=== PATIENT | female | born 1980 | race Caucasian/White ===

== ENCOUNTER 2020-08-15 07:29 | Outpatient (REF) | payer OTHER, SELFPAY | END 2020-08-15 07:30 | disposition home or self-care (01) | LOC: HO.LAB 07:29 | PROVIDERS: Visit Provider Internal Medicine | DX: Z20.828 Contact with and (suspected) exposure to other viral communicable diseases (principal) | CPT/HCPCS: C9803; U0003 ==

== ENCOUNTER 2022-05-19 09:55 | Outpatient (REF) | payer OTHER, SELFPAY ==
--- NOTE | ~2022-05-19 | XR_ITS ---
EXAMINATION: XR CHEST CLINICAL INFORMATION: Patient preop. Morbid to severe obesity COMPARISON: None TECHNIQUE: 2 views of the chest were obtained. FINDINGS: No significant abnormality is noted involving the heart, lungs, mediastinum, bony thorax or soft tissues. XR/XR chest 2V IMPRESSION: Unremarkable chest examination.
--- NOTE | 2022-05-19 10:20 | ECG_ITS ---
Test Reason : MORBID OBESITY E66.01 Blood Pressure : / mmHG Vent. Rate : 056 BPM Atrial Rate : 056 BPM P-R Int : 158 ms QRS Dur : 090 ms QT Int : 446 ms P-R-T Axes : 057 060 045 degrees QTc Int : 430 ms Sinus bradycardia with sinus arrhythmia Otherwise normal ECG No previous ECGs available Referred By: Toi Pedraza Electronically Signed By:SHEILA ISAREL
[2022-05-19 10:21] LABS: MANUAL DIFF FLAG NO
[2022-05-19 10:54] LABS: Basophils Percent Auto 0.2 % (0-2); Eosinophils Absolute Auto 0.1 X10*3/uL (0.0-0.4); Eosinophils Percent Auto 1.1 % (0-4); Hemoglobin 12.9 g/dl (12.0-16.0); Imm Gran Abs Auto 0.02 X10*3/uL (0.00-0.03); Imm Gran Pct Auto 0.2 % (0.0-0.4); Lymphocytes Absolute Auto 1.8 X10*3/uL (1.2-4.9); Lymphocytes Percent Auto 20.8 % (20-40); Mean Corpuscular HGB Conc 32.3 g/dl (31.0-35.0); Mean Corpuscular Hemoglobin 28.9 pg (27.0-33.0); Mean Corpuscular Volume 89.5 fL (80.0-98.0); Mean Platelet Volume 9.7 fL (9.4-12.3); Monocytes Absolute Auto 0.6 X10*3/uL (0.1-1.2); Monocytes Percent Auto 6.6 % (2-11); Neutrophils Absolute Auto 6.1 x10*3/uL (2.0-8.3); Neutrophils Percent Auto 71.1 % (45-73); Platelet Count 274 X10*3/uL (160-400); Red Blood Count 4.47 X10*6/uL (4.20-5.50); Red Cell Distribution Width 13.2 % (11.0-16.0); White Blood Count 8.5 X10*3/uL (4.8-10.8)
[2022-05-19 11:01] LABS: Estimated Average Glucose 94 mg/dL; Hemoglobin A1c % 4.9 %
[2022-05-19 11:31] LABS: Alanine Aminotransferase 18 U/L (0-31); Alkaline Phosphatase 60 U/L (39-117); Anion Gap 12 (12-20); Aspartate Amino Transferase 15 U/L (5-31); Bilirubin Total 0.2 mg/dL (0.0-1.0); Blood Urea Nitrogen 16 mg/dL (9-16); C Reactive Protein 0.68 mg/dL (< or = 0.50); Carbon Dioxide 28 mmol/L (22-29); Chloride 104 mmol/L (96-108); Cholesterol 148 mg/dL; Estimated Glomerular Filt Rate > 60; Glucose Random 88 mg/dL (60-115); HDL Cholesterol 56 mg/dL; Iron 44 mcg/dL (30-160); LDL Cholesterol Calculated 81 mg/dl; Percent Iron Saturation 14 % (15-50); Potassium 4.4 mmol/L (3.3-5.1); Sodium 140 mmol/L (135-145); Total Iron Binding Capacity 321 mcg/dL (228-428); Total Protein 6.9 g/dL (6.5-8.0); Triglycerides 57 mg/dL; Unsaturated Iron Binding 277 ug/dL
[2022-05-19 11:42] LABS: Ferritin 15 ng/mL (10-250); Insulin 10 uU/mL (2-29); TSH reflex Free T4 1.77 uIU/mL (0.32-4.0)
[2022-05-19 12:04] LABS: Folate 12.2 ng/mL (> or = 4.0); Vitamin B12 483 pg/mL (200-900)
[2022-05-21 13:33] LABS: Calcium (PTHI) 9.2 mg/dL (8.6-10.2); PTHI 71 pg/mL (16-77)
[2022-05-22 06:22] LABS: Zinc 75 mcg/dL (60-130)
[2022-05-23 02:36] LABS: Vitamin A 43 mcg/dL (38-98)
[2022-05-23 14:06] LABS: Vitamin B1 8 nmol/L (8-30)
== END 2022-05-19 09:56 | disposition home or self-care (01) ==
LOC: HO.LAB 09:55
PROVIDERS: PCP Internal Medicine; Visit Provider Physician Assistant Surgical
DX: E66.01 Morbid (severe) obesity due to excess calories (principal)
CPT/HCPCS: 36415; 71046; 80053; 80061; 82306; 82607; 82728; 82746; 83036; 83525; 83540; 83970; 84425; 84443; 84590; 84630; 85025; 86140; 93005

== ENCOUNTER 2022-05-21 16:04 | Outpatient (REF) | payer OTHER, SELFPAY ==
[2022-05-22 15:36] LABS: H Pylori Breath Test Negative (Negative)
== END 2022-05-21 16:05 | disposition home or self-care (01) ==
LOC: HO.LNP 16:04
PROVIDERS: Visit Provider Physician Assistant Surgical
DX: E66.01 Morbid (severe) obesity due to excess calories (principal)
CPT/HCPCS: 83013

== ENCOUNTER → 2022-05-28 11:03 | Outpatient (BNVA) | payer OTHER, SELFPAY | PROVIDERS: PCP Internal Medicine; Referring Provider Physician Assistant Surgical; Visit Provider Dietitian, Registered | DX: E66.9 Obesity, unspecified (principal) | CPT/HCPCS: 97802 ==